=== PATIENT | female | born 2000 | race Caucasian/White ===

== ENCOUNTER 2022-08-29 16:22 | Emergency (ER) | payer SELFPAY ==
[~2022-08-29] VITALS: Ht 167.6 cm; Wt 59.0 kg
[2022-08-29] MEDS ORDERED: VISCOUS LIDOCAINE 2% 15 ML UDC MM STA (16:36)
[2022-08-29] MEDS ORDERED: ONDANSETRON 4MG ODT PO ONE (16:45)
[2022-08-29] MEDS ORDERED: FAMOTIDINE 20MG TABLET PO ONE (16:45)
[2022-08-29] MEDS ORDERED: MAGNESIUM/ALUMINUM HYDROXIDE/SIMETHICONE 30ML UDC PO ONE (16:45)
[2022-08-29] MEDS ORDERED: FAMO40TA70 MT (18:52)
[2022-08-29] MEDS ORDERED: MAG-55 MT (18:52)
[2022-08-29 18:56] VITALS: BP 95/86
== END 2022-08-29 19:31 | disposition home or self-care (01) ==
LOC: ER 16:22
DX: K21.9 Gastro-esophageal reflux disease without esophagitis (principal)
CPT/HCPCS: 71045; 93005; 99284; Q0162